=== PATIENT | female | born 1955 | race Caucasian/White ===

== ENCOUNTER 2021-11-01 09:22 | Emergency (ER) | payer OTHER ==
--- OUTSIDE RECORDS SUMMARY | 2021-11-01 09:25 | XMS REPORT | Continuity of Care Document ---
:1955 Author Organization [facility] t Address [address] [place] [address] Care Team Providers Name Role Phone Benjamin Lala Attending Clinician Unavailable Problems This patient has no known problems. Allergies, Adverse Reactions, Alerts This patient has no known allergies or adverse reactions. Medications This patient has no known medications. Procedures This patient has no known procedures. Encounters Start End Encounter Admission Attending Care Care Encounter Source Date/Time Date/Time Type Type Clinicians Facility Department ID 2021-08-10 Outpatient Alexander, STLMLC STLMLC [id number] Common 14:36:02 Lala [facility] 2021-08-08 Outpatient Alexander, STLMLC STLMLC [id number] Common 10:30:03 Lala [facility] 2021-07-19 Outpatient Alexander, STLMLC STLMLC [id number] Common 10:04:06 Lala [facility] 2021-09-12 2021-09-12 ambulatory STLMLC STLMLC [id number] Common 00:00:00 00:00:00 [facility] 2021-08-15 2021-08-15 ambulatory STLMLC STLMLC [id number] Common 00:00:00 00:00:00 [facility] 2021-08-15 2021-08-15 ambulatory STLMLC STLMLC [id number] Common 00:00:00 00:00:00 [facility] 2021-07-19 2021-07-19 [facility] [id number] Common 00:00:00 00:00:00 [facility] Results This patient has no known results.
[2021-11-01] MEDS ORDERED: ASPIRIN 81 MG CHEWABLE TABLET ONE (09:56)
[2021-11-01 10:10] LABS: Absolute Lymphocytes (CBC) 2.3 K/uL (0.7-4.9); Hematocrit 42.3 % (36.0-45.0); Lymphocytes % 16.7 % (15.3-44.8); MCV 87.1 fL (80-100); MPV 8.1 fL (7.6-11.3); RBC Red Blood Cell Count 4.86 M/uL (3.86-4.86)
[2021-11-01 10:12] LABS: Protime INR 1.02
[2021-11-01 10:25] LABS: Albumin 3.6 g/dL (3.4-5.0); Bilirubin Direct 0.1 mg/dL (0-0.2); Bilirubin Total 0.6 mg/dL (0.2-1.0); Magnesium 2.3 mg/dL (1.8-2.4); Potassium 3.8 mmol/L (3.5-5.1); Troponin High Sensitivity 3.1 pg/mL (<58.9)
[2021-11-01] MEDS ORDERED: KETOROLAC 30 MG/ML INJ ONE (12:15)
--- NOTE | 2021-11-01 12:24 | RAD REPORT ---
EXAM DESCRIPTION: Karen Single View11/01/2021 10:11 am CLINICAL HISTORY: Chest pain COMPARISON: none FINDINGS: Small bilateral pulmonary nodules. Remainder lungs appear clear Heart is normal size IMPRESSION: Small bilateral pulmonary nodules may be infectious, inflammatory or metastatic
--- NOTE | 2021-11-01 12:34 | RAD REPORT ---
EXAM DESCRIPTION: CT - Chest For Pe Angio - 11/01/2021 12:17 pm CLINICAL HISTORY: Chest pain COMPARISON: None. TECHNIQUE: Dynamically enhanced axial 3 mm thick images of the chest were obtained during administra tion of <100> mL Isovue 370 IV contrast. Coronal and oblique reconstruction images were generated and reviewed. Exam utilizes a protocol for optimal evaluation of pulmonary arterial tree. Maximum intensity projections 3D imaging was utilized All CT scans are performed using dose optimization technique as appropriate and may include automated exposure control or mA/KV adjustment according to patient size. FINDINGS: A pulmonary embolus is not seen. A thoracic aortic aneurysm is not noted. A pleural effusion is not seen. A pericardial effusion is not seen. Bilateral pulmonary nodules vary in size from 1-4 millimeters. Mild tree-in-bud opacities bilaterally. IMPRESSION: Negative for a pulmonary embolism. Mild tree-in-bud opacities bilaterally may indicate an atypical infection Small bilateral pulmonary nodules may be infectious or inflammatory. Neoplasm can also have this appe arance. Followup CT chest in 3 months recommended
--- NOTE | 2021-11-01 12:40 | ER ---
Nurse's Notes [facility] Name: Noemy Rao Age: 66 yrs Sex: Female : 1955 Arrival Date: 11/01/2021 Time: 09:26 Bed 5 Private MD: Lala Alexander Diagnosis: Atypical Pneumonia;Pleurisy Presentation: 11/01 09:27 Chief complaint: Patient states: Chest pain \\T\\ sob x2 days, worsening with deep breath tw2 and cough. no fever. Coronavirus screen: cough unrelated to allergies, shortness of breath, Client presents with at least one sign or symptom that may indicate coronavirus-19. Standard/surgical mask placed on the client. Provider contacted for isolation considerations. Ebola Screen: Patient denies travel to an Ebola-affected area in the 21 days before illness onset. Initial Sepsis Screen: Does the patient meet any 2 criteria? HR > 90 bpm. No. Patient's initial sepsis screen is negative. Does the patient have a suspected source of infection? No. Patient's initial sepsis screen is negative. Risk Assessment: Do you want to hurt yourself or someone else? Patient reports no desire to harm self or others. Note provider JENELLE Cervantes in triage room performing assessment at this time. Onset of symptoms was October 30, 2021. 09:27 Method Of Arrival: Ambulatory tw2 09:27 Acuity: CAMILO 3 tw2 Triage Assessment: :30 General: Appears in no apparent distress. slender, well groomed, Behavior is calm, tw2 cooperative, appropriate for age. Pain: Complains of pain in xiphoid area. Neuro: Level of Consciousness is awake, alert, obeys commands, Oriented to person, place, time, situation. Cardiovascular: Reports chest pain, shortness of breath. Historical: - Allergies: : No Known Allergies; tw2 - Home Meds: :30 Levothroid Oral [Active]; Metoprolol Tartrate Oral [Active]; atorvastatin oral tw2 [Active]; venlafaxine oral [Active]; gabapentin oral [Active]; - PMHx: 09:30 Anxiety; Hypertensive disorder; Hypothyroidism; tw2 - PSHx: 09:30 bunionectomy, b/l; tw2 - Immunization history:: Client reports receiving the 2nd dose of the Covid vaccine. - Social history:: Smoking status: Patient denies any tobacco usage or history of. Screenin:40 Abuse screen: Denies threats or abuse. Denies injuries from another. Nutritional jg9 screening: No deficits noted. Tuberculosis screening: No symptoms or risk factors identified. Fall Risk None identified. Assessment: 10:00 Reassessment: No changes from previously documented assessment. Patient and/or family jg9 updated on plan of care and expected duration. Pain level reassessed. Patient is alert, oriented x 3, equal unlabored respirations, skin warm/dry/pink. Pain: Denies pain. Pain does not radiate. Pain began 2-3 days ago. 11:00 Reassessment: No changes from previously documented assessment. Patient and/or family jg9 updated on plan of care and expected duration. Pain level reassessed. Patient is alert, oriented x 3, equal unlabored respirations, skin warm/dry/pink. 12:00 Reassessment: Patient and/or family updated on plan of care and expected duration. Pain jg9 level reassessed. Patient is alert, oriented x 3, equal unlabored respirations, skin warm/dry/pink. Patient states feeling better. Vital Signs: 09:27 BP 135 / 70; Pulse 98; Resp 17; Temp 98.5(O); Pulse Ox 95% on R/A; Weight 70.31 kg (R); tw2 Height 5 ft. 4 in. (162.56 cm); Pain 7/10; 11:35 BP 128 / 68; Pulse 74; Resp 18 S; Pulse Ox 96% on R/A; Pain 4/10; jg9 12:30 BP 129 / 73; Pulse 74; Resp 19 S; Pulse Ox 99% ; Pain 1/10; jg9 09:27 Body Mass Index 26.61 (70.31 kg, 162.56 cm) tw2 ED Course: 09:26 Patient arrived in ED. mr 09:26 Lala Alexander MD is Private Physician. mr 09:27 [facility] cp 09:27 José Antonio Rivero DO is Attending Physician. cp 09:27 Arm band placed on. tw2 09:29 Helen Medina FNP [facility] 09:29 José Antonio Rivero DO is Attending Physician. jh7 09:30 Triage completed. tw2 09:57 Missed attempt(s): 20 gauge in right antecubital area. kc6 09:57 Inserted saline lock: 20 gauge in left forearm, using aseptic technique. Blood kc6 collected. 09:58 Basic Metabolic Panel Sent. kc6 09:58 CBC with Diff Sent. kc6 09:58 D-Dimer Sent. kc6 09:58 LFT's Sent. kc6 09:58 Magnesium Sent. kc6 09:58 NT PRO-BNP Sent. kc6 09:58 PT-INR Sent. kc6 09:58 Troponin HS Sent. kc6 09:58 COVID-19 SARS RT PCR (Document "Date of Onset" if Symptomatic) Sent. kc6 10:00 Patient has correct armband on for positive identification. Client placed on continuous jg9 cardiac and pulse oximetry monitoring. NIBP monitoring applied. 10:00 Patient maintains SpO2 saturation greater than 95% on room air. jg9 10:10 XRAY Chest (1 view) In Process Unspecified. EDMS 10:23 Helen Hazel, MARE is Primary Nurse. jg9 12:19 Chest For Pe Angio In Process Unspecified. EDMS 12:39 Lala Alexander MD is Referral Physician. jh7 12:58 No provider procedures requiring assistance completed. jg9 12:58 IV discontinued. jg9 12:59 CT Chest For PE Angio Sent. jg9 Administered Medications: 10:15 Drug: Aspirin Chewable Tablet 324 mg Route: PO; jg9 11:00 Follow up: Response: No adverse reaction jg9 12:10 Drug: Ketorolac 15 mg Route: IVP; Site: left antecubital; jg9 12:59 Follow up: Response: No adverse reaction; Pain is decreased jg9 Medication: 12:58 VIS not applicable for this client. jg9 Outcome: 12:40 Discharge ordered by . jh7 12:58 Discharged to home ambulatory. jg9 12:58 Condition: improved 12:58 Discharge instructions given to patient, Instructed on discharge instructions, follow up and referral plans. Demonstrated understanding of instructions, follow-up care. 13:14 Patient left the ED. jg9 Signatures: Dispatcher [facility] Kaia Collado Corey, PA PA cp Wise, Tara, RN RN tw2 Helen Hazel, RN RN jg9 Helen Medina, [employer]ING [employer]CH[employer] jh7 Madina Mckinnon kc6 Corrections: (The following items were deleted from the chart) 12:58 11:35 BP 128 / 68; Pulse 74bpm; Resp 18bpm; Spontaneous; Pulse Ox 96% RA; jg9 jg9
--- NOTE | 2021-11-01 12:41 | EDPHYS ---
Physician Documentation [facility] Name: Noemy Rao Age: 66 yrs Sex: Female : 1955 Arrival Date: 11/01/2021 Time: 09:26 Bed 5 Private MD: Lala Alexander ED Physician José Antonio Rivero HPI: 11/01 09:30 This 66 yrs old Female presents to ER via Ambulatory with complaints of Chest Pain, jh7 Shortness Of Breath. 09:30 Onset: The symptoms/episode began/occurred 2 day(s) ago. Associated signs and symptoms: jh7 Pertinent negatives: congestion, cough, diarrhea, fever, vomiting. Patient presents with chest pain and shortness of breath over the past 2 days. She describes persistent times as worsening, but denies any other symptoms. She describes the chest pain is sternal and worsening with taking a deep breath. Reports a history of hypertension, thyroid disease, and anxiety.. Historical: - Allergies: 09:30 No Known Allergies; tw2 - Home Meds: 09:30 Levothroid Oral [Active]; Metoprolol Tartrate Oral [Active]; atorvastatin oral tw2 [Active]; venlafaxine oral [Active]; gabapentin oral [Active]; - PMHx: 09:30 Anxiety; Hypertensive disorder; Hypothyroidism; tw2 - PSHx: 09:30 bunionectomy, b/l; tw2 - Immunization history:: Client reports receiving the 2nd dose of the Covid vaccine. - Social history:: Smoking status: Patient denies any tobacco usage or history of. ROS: 09:30 Constitutional: Negative for fever, chills, and weight loss, Eyes: Negative for injury, jh7 pain, redness, and discharge, Neck: Negative for injury, pain, and swelling, Abdomen/GI: Negative for abdominal pain, nausea, vomiting, diarrhea, and constipation, Back: Negative for injury and pain, Skin: Negative for injury, rash, and discoloration, Neuro: Negative for headache, weakness, numbness, tingling, and seizure. 09:30 Cardiovascular: Positive for chest pain, Negative for palpitations. 09:30 Respiratory: Positive for shortness of breath, Negative for cough, wheezing. 09:30 All other systems are negative. Exam: 09:30 Constitutional: This is a well developed, well nourished patient who is awake, alert, jh7 and in no acute distress. ENT: Nares patent. No nasal discharge, no septal abnormalities noted. Oropharynx with no redness, swelling, or masses, exudates, or evidence of obstruction, uvula midline. Mucous membranes moist. Neck: Trachea midline, no thyromegaly or masses palpated, and no cervical lymphadenopathy. Supple, full range of motion without nuchal rigidity, or vertebral point tenderness. No Meningismus. Cardiovascular: Regular rate and rhythm with a normal S1 and S2. No gallops, murmurs, or rubs. Normal PMI, no JVD. No pulse deficits. Respiratory: Lungs have equal breath sounds bilaterally, clear to auscultation and percussion. No rales, rhonchi or wheezes noted. No increased work of breathing, no retractions or nasal flaring. Abdomen/GI: Soft, non-tender, with normal bowel sounds. No distension or tympany. No guarding or rebound. No evidence of tenderness throughout. Back: No spinal tenderness. No costovertebral tenderness. Full range of motion. Skin: Warm, dry with normal turgor. Normal color with no rashes, no lesions, and no evidence of cellulitis. MS/ Extremity: Pulses equal, no cyanosis. Neurovascular intact. Full, normal range of motion. Neuro: Awake and alert, GCS 15, oriented to person, place, time, and situation. Motor strength 5/5 in all extremities. Sensory grossly intact. Normal gait. Vital Signs: 09:27 BP 135 / 70; Pulse 98; Resp 17; Temp 98.5(O); Pulse Ox 95% on R/A; Weight 70.31 kg (R); tw2 Height 5 ft. 4 in. (162.56 cm); Pain 7/10; 11:35 BP 128 / 68; Pulse 74; Resp 18 S; Pulse Ox 96% on R/A; Pain 4/10; jg9 12:30 BP 129 / 73; Pulse 74; Resp 19 S; Pulse Ox 99% ; Pain 1/10; jg9 09:27 Body Mass Index 26.61 (70.31 kg, 162.56 cm) tw2 MDM: 09:30 [facility] medically screened. [facility] 12:35 Differential diagnosis: viral Infection, bacterial infection, pneumonia Acute MA. Data [facility] reviewed: vital signs, nurses notes, lab test result(s), EKG, radiologic studies, CT scan, plain films. Data interpreted: Pulse oximetry: is 99 %. Interpretation: normal. Counseling: I had a detailed discussion with the patient and/or guardian regarding: the historical points, exam findings, and any diagnostic results supporting the discharge/admit diagnosis, to return to the emergency department if symptoms worsen or persist or if there are any questions or concerns that arise at home. Response to treatment: the patient's symptoms have markedly improved after treatment. Special discussion: Based on the patient's history, exam, and Dx evaluation, there is no indication for emergent intervention or inpatient Tx. It is understood by the patient/guardian that if the Sx's persist or worsen they need to return immediately for re-evaluation. ED course: Discussed the patient's acute and nonacute findings on lab work and CT. Her symptoms improved after Toradol administration. Informed the patient that the nodules in her lungs could be inflammatory or infectious. Informed her that we would cover for both by giving antibiotics and steroids. Also advised follow-up with PCP in [address] If symptoms worsen, or any new concerning symptoms develop, she may return to the ER for further eval.. 11/01 09:30 Order name: Basic Metabolic Panel; Complete Time: 10: [facility] 11/01 09:30 Order name: CBC with Diff; Complete Time: [facility] 11/01 09:30 Order name: D-Dimer; Complete Time: : [facility] 11/01 09:30 Order name: LFT's; Complete Time: : [facility] 11/01 09:30 Order name: Magnesium; Complete Time: 10:35 [facility] 11/01 09:30 Order name: NT PRO-BNP; Complete Time: 10:35 [facility] 11/01 09:30 Order name: PT-INR; Complete Time: 10:35 [facility] 11/01 09:30 Order name: Troponin HS; Complete Time: :35 [facility] 11/01 09:30 Order name: XRAY Chest (1 view); Complete Time: 12:29 [facility] 11/01 09:30 Order name: COVID-19 SARS RT PCR (Document "Date of Onset" if Symptomatic); Complete [facility] Time: 11:19 11/01 11:56 Order name: CT Chest For PE Angio [facility] 11/01 12:00 Order name: Chest For Pe Angio; Complete Time: 12:36 EDMS 11/01 09:30 Order name: EKG; Complete Time: 09:31 [facility] 11/01 09:30 Order name: Cardiac monitoring; Complete Time: :58 [facility] 11/01 09:30 Order name: EKG - Nurse/Tech; Complete Time: :57 [facility] 11/01 09:30 Order name: IV Saline Lock; Complete Time: :57 [facility] 11/01 09:30 Order name: Labs collected and sent; Complete Time: :57 [facility] 11/01 09:30 Order name: O2 Per Protocol; Complete Time: :57 [facility] 11/01 09:30 Order name: O2 Sat Monitoring; Complete Time: :58 jh7 EC:57 Rate is 83 beats/min. Rhythm is regular. QRS [place] is Normal. MA interval is normal at jh7 154 msec. QRS interval is normal at 80 msec. QT interval is normal at 368 msec. No Q waves. T waves are Inverted in leads III, aVF. No ST changes noted. Clinical impression: NSR w/ Non-specific ST/T Changes. Administered Medications: 10:15 Drug: Aspirin Chewable Tablet 324 mg Route: PO; jg9 11:00 Follow up: Response: No adverse reaction jg9 12:10 Drug: Ketorolac 15 mg Route: IVP; Site: left antecubital; jg9 12:59 Follow up: Response: No adverse reaction; Pain is decreased j9 Disposition: 09:51 Co-signature as Attending Physician, José Antonio Rivero DO PA/WIRING INSPECTOR's history reviewed, patient ms3 interviewed, and examined. HPI: 66-year-old female with past medical history of anxiety, hypertension, hypothyroidism presents for epigastric pain for 2 days. My personal exam of patient reveals: Patient is alert and oriented x4, in no apparent distress. Heart rate and rhythm are regular without murmurs rubs or gallops. Lungs are clear to auscultation bilaterally. Skin is dry and without erythema or rashes. Abdomen is nontender to palpation with bowel sounds present. I agree with assessment and care plan and confirm the diagnosis (es) above. Attestation: The patient's history, exam findings, diagnostics, and a summary of any interventions or procedures was reviewed in detail with Helen CORNEJO. Disposition Summary: 11/01/21 12:40 Discharge Ordered [facility]: Home [facility] Problem: new [facility] Symptoms: have improved [facility] Condition: Stable [facility] Diagnosis - Atypical Pneumonia [facility] - [facility]urisy [facility]up: [facility] - With: Lala Alexander MD - When: 2 - 3 days - Reason: Recheck today's complaints Discharge Instructions: - Discharge Summary Sheet [facility] - [facility]urisy [facility] - Community-Acquired Pneumonia, Adult [facility] Forms: - Medication Reconciliation Form [facility] - Thank You Letter [facility] - Antibiotic Education [facility] Prescriptions: - ProAir HFA 90 mcg/actuation Inhalation HFA aerosol inhaler - inhale 2 puff by INHALATION route every 4-6 hours As needed; 1 Inhaler; [facility] Refills: 0, Product Selection Permitted - Doxycycline Hyclate 100 mg Oral Tablet - take 1 tablet by ORAL route every 12 hours for 1 week; 14 tablet; Refills: 0, [facility] Product Selection Permitted - Medrol (Fred) 4 mg Oral Tablets, Dose Pack - take 1 tablet by ORAL route as directed - follow package instructions; 1 [facility] packet; Refills: 0, Product Selection Permitted Signatures: Dispatcher [employer] Sparkle Jarrell RN RN tw2 José Antonio Rivero DO DO ms3 Helen Hazel, RN RN jg9 Helen Medina, CHANTAL CORNEJO [facility]
[2021-11-01 14:00] VITALS: TEMP 98.5
[2021-11-01 14:05] VITALS: BP 129/73; O2SAT 99
== END 2021-11-01 13:14 | disposition home or self-care (01) ==
LOC: ER 09:22
DX: J18.9 Pneumonia, unspecified organism (principal); R09.1 Pleurisy; I10 Essential (primary) hypertension; F41.9 Anxiety disorder, unspecified; E03.9 Hypothyroidism, unspecified; Z20.822 Contact with and (suspected) exposure to COVID-19
CPT/HCPCS: 85025; 80048; 36415; 83735; 85610; 85379; 80076; 84484; 83880; 71275; 71045; U0003; Q9967